=== PATIENT | male | born 1985 | race Caucasian/White ===

== ENCOUNTER 2022-02-12 14:30 | Emergency (ER) | payer SELFPAY ==
[~2022-02-12 14:30] MED LIST: LODINE CAP 300300 MG PO; PENVEE K 500 M500 MG PO
[2022-02-12 15:14] LABS: HEMOGLOBIN 15.4 gm/dl (14.0-17.5); RED BLOOD COUNT 4.78 M/UL (4.20-5.50); WHITE BLOOD COUNT 13.1 K/UL (4.5-11.0)
[2022-02-12 16:42] LABS: BUN/CREATININE RATIO 15 (0-10)
== END 2022-02-12 16:00 | disposition home or self-care (01) ==
LOC: ER1 14:30
PROVIDERS: Emergency Medicine
DX: R07.2 Precordial pain (principal); F17.200 Nicotine dependence, unspecified, uncomplicated
CPT/HCPCS: 71045; 80053; 82550; 82553; 84484; 85025; 93005; 99285